=== PATIENT | female | born 1985 | race Caucasian/White ===

== ENCOUNTER → 2018-04-29 | Outpatient (CLI) | payer OTHER, MEDICAID ==
[~2018-04-29] MED LIST: CIPROFLOXACIN500 MG PO; FLEXERIL5 MG PO; NAPROSYN500 MG PO; NORCO 325 MG-51 TAB PO; ULTRAM50 MG PO
== END | disposition home or self-care (01) ==
LOC: MAMMO 04-23 09:00
DX: Z12.31 Encounter for screening mammogram for malignant neoplasm of breast (principal); R92.8 Other abnormal and inconclusive findings on diagnostic imaging of breast; R51 Headache